=== PATIENT | male | born 1990 | race Hispanic/Latino ===

== ENCOUNTER 2017-05-18 06:29 | Emergency (ER) | payer OTHER ==
--- NOTE | 2017-05-18 07:26 | Emergency Department Report ---
ED Animal Bite HPI - General Chief Complaint: Animal Bite Stated Complaint: DOG BITE Time Seen by Provider: 05/18/17 07:21 Source: EMS Mode of arrival: Stretcher Limitations: No Limitations - History of Present Illness Initial Comments: 27-year-old male past medical history none presents with complaint of dog bite to left lower extremity. 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 Ofc. states that as he was trying to physically apprehending a subject is canine bit him in the leg. As per officer canine has all vaccinations including rabies. Patient is accompanied by other [employer] police officers. Patient denies any loss of consciousness or injuries to any other body part other than bite wounds to left lower extremity near calf region on the posterior aspect of the leg. Denies any loss of consciousness. Patient is awake alert and oriented 3. Unaware of his tetanus status. Visible dressing overlying left calf region. Patient denies injuries to any other body part MD Complaint: animal bite, animal-related injury Onset/Timin -: hour(s) Location: other (left leg) Left: Leg (bite wounds left leg) Animal Control Notified: Yes Mechanism: bite Pain Description: sharp Severity scale (0 -10): 5 Context: provoked, other (police canine) Associated Symptoms: bleeding Treatments Prior to Arrival: wound dressing(s), pressure - Related Data Patient Tetanus UTD: No Previous Rx's Medication Instructions Recorded Last Taken Type Acetaminophen/Codeine [Tylenol 1 tab PO Q6H PRN #9 tab 05/18/17 Unknown Rx /Codeine # 3 tab] Amoxicillin/K Clav Tab [Augmentin 1 tab PO Q12HR #28 tab 05/18/17 Unknown Rx 875 mg] Ibuprofen [Motrin] 800 mg PO Q8HR PRN #30 tablet 05/18/17 Unknown Rx Neomycn/Baci Zn/Pmyx Bs/Pramox 28 gm TP BID #1 oint...g. 05/18/17 Unknown Rx [Triple Antibioti-Pain Rlf Oint] Allergies Allergy/AdvReac Type Severity Reaction Status Date / Time No Known Allergies Allergy Verified 05/18/17 07:49 ED Review of Systems ROS: Stated complaint: DOG BITE Other details as noted in HPI Constitutional: denies: chills, fever Eyes: denies: eye pain, eye discharge, vision change ENT: denies: ear pain, throat pain Respiratory: denies: cough, shortness of breath, wheezing Cardiovascular: denies: chest pain, palpitations Endocrine: no symptoms reported Gastrointestinal: denies: abdominal pain, nausea, diarrhea Genitourinary: denies: urgency, dysuria Musculoskeletal: denies: back pain, joint swelling, arthralgia Skin: denies: rash, lesions Neurological: denies: headache, weakness, paresthesias Psychiatric: denies: anxiety, depression Hematological/Lymphatic: denies: easy bleeding, easy bruising ED Past Medical Hx - Past Medical History Previous Medical History?: No - Surgical History Past Surgical History?: No - Social History Smoking Status: Never Smoker Substance Use Type: Alcohol - Medications Home Medications: Home Medications Medication Instructions Recorded Confirmed Last Taken Type Acetaminophen/Codeine [Tylenol 1 tab PO Q6H PRN #9 tab 05/18/17 Unknown Rx /Codeine # 3 tab] Amoxicillin/K Clav Tab [Augmentin 1 tab PO Q12HR #28 tab 05/18/17 Unknown Rx 875 mg] Ibuprofen [Motrin] 800 mg PO Q8HR PRN #30 tablet 05/18/17 Unknown Rx Neomycn/Baci Zn/Pmyx Bs/Pramox 28 gm TP BID #1 oint...g. 05/18/17 Unknown Rx [Triple Antibioti-Pain Rlf Oint] ED Physical Exam - General Limitations: No Limitations General appearance: alert, in no apparent distress - Head Head exam: Present: atraumatic, normocephalic - Eye Eye exam: Present: normal appearance, PERRL, EOMI - ENT ENT exam: Present: mucous membranes moist - Neck Neck exam: Present: normal inspection - Respiratory Respiratory exam: Present: normal lung sounds bilaterally. Absent: respiratory distress - Cardiovascular Cardiovascular Exam: Present: regular rate, normal rhythm. Absent: systolic murmur, diastolic murmur, rubs, gallop - GI/Abdominal GI/Abdominal exam: Present: soft, normal bowel sounds - Rectal Rectal exam: Present: deferred - Extremities Exam Extremities exam: Present: normal inspection - Expanded Lower Extremity Exam Left Hip exam: Present: normal inspection, full ROM Upper Leg exam: Present: normal inspection, full ROM Knee exam: Present: normal inspection, full ROM Lower Leg exam: Present: full ROM (range of motion flexion and extension at knee and ankle fully intact), tenderness, abrasion (multiple abrasions, linear on anterior peters and posterior calf region), laceration Ankle exam: Present: normal inspection, full ROM Foot/Toe exam: Present: normal inspection, full ROM Neuro vascular tendon exam: Present: no vascular compromise (distal dorsalis pedis and posterior tibial pulses intact) Gait: Positive: antalgic (antalgic gait due to pain left calf) 1 - Abrasions here 2 - 5-6 cm straight horizontal laceration across the top of the back left calf region, minimal to no bleeding, subcutaneous tissue exposed 3 - Single 2-3 cm horizontal laceration here no active bleeding - Back Exam Back exam: Present: normal inspection - Neurological Exam Neurological exam: Present: alert, oriented X3 - Psychiatric Psychiatric exam: Present: normal affect, normal mood - Skin Skin exam: Present: warm, dry, intact, normal color. Absent: rash ED Course Vital Signs 05/18/17 05/18/17 06:50 06:59 Temperature 99 F Pulse Rate 69 Respiratory 18 18 Rate Blood Pressure 116/62 [Right] O2 Sat by Pulse 100 99 Oximetry - Laceration /Wound Repair Left Lower Posterior Calf Wound Location: lower extremity (back of left calf) Wound Length (cm): 6 Wound's Depth, Shape: into muscle (into subcutaneous tissue), linear Wound Explored: clean Irrigated w/ Saline (ccs): 500 Betadine Prep?: Yes Anesthesia: Lidocaine w/ Epi Volume Anesthetic (ccs): 8 Wound Debrided: minimal Wound Repaired With: sutures Suture Size/Type: 3:0, nylon Number of Sutures: 3 Layer Closure?: No Sterile Dressing Applied?: Yes (triple antibiotic ointment with Kerlix gauze externally) Progress: Good local anesthesia achieved, 3 loose sutures placed to approximate wound edges however as this is an animal bite I will not make sutures tight. Procedure tolerated well Left Lower Calf Wound Location: lower extremity (posterior mid left calf) Wound Length (cm): 3 Wound's Depth, Shape: superficial Irrigated w/ Saline (ccs): 250 Betadine Prep?: Yes Anesthesia: Lidocaine w/ Epi (4) Wound Debrided: minimal Wound Repaired With: sutures Suture Size/Type: 3:0, nylon Number of Sutures: 1 Sterile Dressing Applied?: Yes (Kerlix with triple antibiotic ointment) Progress: Good local anesthesia achieved, tolerated well, minimal bleeding, one loose suture placed to approximate wound after irrigation the wound with saline Critical Care Time: Yes Critical care time in (mins) excluding proc time.: 60 Critical care attestation.: If time is entered above; I have spent that time in minutes in the direct care of this critically ill patient, excluding procedure time. A/P: Left lower extremity dog bite, abrasions, puncture wounds 1-loose sutures placed over laceration sites to approximate wounds after thorough irrigation with saline and cleaning with iodine superficially 2-Augmentin 14 day course 3-Motrin when necessary, short course Tylenol 3 4- I advised patient to return to the ED for any signs of overt infection including erythema pus drainage foul order or extreme tenderness at site. 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 who states that the specific canine that but the officer has had all of its vaccinations there is no need for rabies prophylaxis ED Disposition Clinical Impression: Laceration, Puncture wound Dog bite Qualifiers: Encounter type: initial encounter Qualified Code(s): W54.0XXA - Bitten by dog, initial encounter Abrasion of leg Qualifiers: Encounter type: initial encounter Laterality: left Qualified Code(s): S80.812A - Abrasion, left lower leg, initial encounter Disposition: DC-01 TO HOME OR SELFCARE Is pt being admited?: No Does the pt Need Aspirin: No Condition: Stable Instructions: Animal Bite (ED), Suture Care (ED), Laceration (ED) Additional Instructions: Sutures to be removed in approximately 10-14 days Prescriptions: Acetaminophen/Codeine [Tylenol /Codeine # 3 tab] 1 tab PO Q6H PRN #9 tab PRN Reason: Pain Amoxicillin/K Clav Tab [Augmentin 875 mg] 1 tab PO Q12HR #28 tab Ibuprofen [Motrin] 800 mg PO Q8HR PRN #30 tablet PRN Reason: Pain Neomycn/Baci Zn/Pmyx Bs/Pramox [Triple Antibioti-Pain Rlf Oint] 28 gm TP BID #1 oint...g. Referrals: CHRISTY SUÁREZ MD [Staff Physician] - 3-5 Days Forms: Work/School Release Form(ED) Time of Disposition: 08:29
[2017-05-18] MEDS ORDERED: ZOFRAN ONE (07:27)
[2017-05-18] MEDS ORDERED: MORPHINE ONE (07:27)
[2017-05-18] MEDS ORDERED: ZOFRAN IV ONE (07:28)
[2017-05-18] MEDS ORDERED: MORPHINE IV ONE (07:28)
[2017-05-18] MEDS ORDERED: AUGMENTIN 875 MG PO ONE (07:28)
[2017-05-18] MEDS ORDERED: BOOSTRIX IM ONE (07:28)
[2017-05-18] MEDS ORDERED: XYLOCAINE 2%/EPI 1:100,000 INFILTRATI ONE ×2 (07:36→07:41)
[2017-05-18] MEDS ORDERED: TRIPLE ANTIBIOTIC TP ONE (08:14)
[2017-05-18 08:57] VITALS: BP 126/69
== END 2017-05-18 09:21 | disposition home or self-care (01) ==
LOC: ED 06:29
DX: S81.852A Open bite, left lower leg, initial encounter (principal); S81.812A Laceration without foreign body, left lower leg, initial encounter; W54.0XXA Bitten by dog, initial encounter; Y93.89 Activity, other specified; Y92.89 Other specified places as the place of occurrence of the external cause; Y99.8 Other external cause status
CPT/HCPCS: 12034; 90471; 90715; 96374; 96375; 99291; J2270; J2405; A6250